=== PATIENT | male | born 1985 | race Caucasian/White ===

== ENCOUNTER → 2024-03-04 | Outpatient (CLI) | payer BC ==
[~2024-03-04] MED LIST: FLONASE ALLERG9.9 ML
[2024-03-04 17:04] LABS: HEMATOCRIT 47.5 % (42.0-52.0); HEMOGLOBIN 16.1 g/dL (13.5-18.0); MEAN PLATELET VOLUME 9.2 fl (7.4-10.4); RED BLOOD COUNT 5.11 M/mm3 (4.20-5.60); RED CELL DISTRIBUTION WIDTH 11.3 % (11.5-14.5); WHITE BLOOD COUNT 8.5 K/mm3 (4.8-10.8)
[2024-03-04 17:12] LABS: SODIUM 140 mmol/L (136-145)
[2024-03-04 17:13] LABS: CALCIUM 9.7 mg/dL (8.3-10.5)
[2024-03-04 17:14] LABS: GLUCOSE 105 mg/dL (75-110)
[2024-03-04 17:15] LABS: TOTAL PROTEIN 7.7 g/dL (6.4-8.3)
[2024-03-04 17:16] LABS: CARBON DIOXIDE 23 mmol/L (22-29); TOTAL BILIRUBIN 0.4 mg/dL (0.2-1.2)
[2024-03-04 17:20] LABS: AST-SGOT 14 U/L (5-34)
[2024-03-04 17:21] LABS: ALT/SGPT 14 U/L (0-55)
[2024-03-04 17:22] LABS: LIPASE 34 U/L (8-78)
== END ==
LOC: LAB 16:41
PROVIDERS: Family Medicine
DX: K52.9 Noninfective gastroenteritis and colitis, unspecified (principal)

== ENCOUNTER → 2024-03-05 | Outpatient (CLI) | payer BC | LOC: LAB 12:24 | DX: K52.9 Noninfective gastroenteritis and colitis, unspecified (principal) ==

== ENCOUNTER 2024-05-28 05:28 | Emergency (ER) | payer BC ==
[2024-05-28] MEDS ORDERED: Ketorolac 30 MG/ML VIAL IM ONE (06:00)
[2024-05-28] MEDS ORDERED: Ondansetron 4 MG/2 ML VIAL IM ONE (06:00)
[2024-05-28] MEDS ORDERED: diphenhydrAMINE 50 MG/ML 1 ML VIAL IM ONE (06:00)
[2024-05-28] MEDS ORDERED: KETOROLAC10 MG PO (06:40)
[2024-05-28] MEDS ORDERED: ZOFRAN ODT4 MG PO (06:40)
[2024-05-28 06:55] VITALS: BP 142/102
== END 2024-05-28 06:55 | disposition home or self-care (01) ==
LOC: ED 05:28
DX: G43.909 Migraine, unspecified, not intractable, without status migrainosus (principal)
CPT/HCPCS: J1200; J1885; J2405